=== PATIENT | male | born 1985 | race African-American/Black ===

== ENCOUNTER 2018-11-23 22:39 | Emergency (ER) | payer OTHER ==
[~2018-11-23] VITALS: Ht 172.7 cm; Wt 79.4 kg
[2018-11-23 23:12] LABS: ABSOLUTE NEUTROPHILS 9.1 thou/uL (1.4-8.2); BASOPHILS 0.6 % (0.0-2.0); EOSINOPHILS 0.3 % (0.0-3.0); HEMATOCRIT 48.9 % (42.0-52.0); HEMOGLOBIN 16.4 gm/dL (14.0-18.0); LYMPHOCYTES 8.6 % (24.0-44.0); MCH 32.1 pg (26.0-34.0); MCHC 33.6 g/dL (28.0-37.0); MCV 95.5 fL (80.0-100.0); MONOCYTES 4.4 % (1.0-8.0); PLATELET COUNT 286 thou/uL (150-400); POLYS 86.1 % (36.0-66.0); RBC 5.12 mil/uL (4.50-6.00); RDW 12.8 % (10.5-14.5); WBC 10.6 thou/uL (4.0-11.0)
[2018-11-23 23:14] LABS: CALCIUM 9.8 mg/dL (8.5-10.1); POTASSIUM 3.8 mmol/L (3.5-5.1)
[2018-11-23 23:19] LABS: ALBUMIN 4.4 g/dL (3.4-5.0); TOTAL BILIRUBIN 0.8 mg/dL (<0.1-1.0); TOTAL PROTEIN 8.4 g/dL (6.4-8.2)
[2018-11-24] MEDS ORDERED: ZOFRAN ODT4 MG DISSOLVE (00:10)
[2018-11-24 00:28] VITALS: BP 139/80
== END 2018-11-24 00:35 | disposition home or self-care (01) ==
LOC: ER 22:39
PROVIDERS: Emergency Medicine
DX: R11.2 Nausea with vomiting, unspecified (principal); R19.7 Diarrhea, unspecified; F17.210 Nicotine dependence, cigarettes, uncomplicated